=== PATIENT | male | born 1950 | race Caucasian/White ===

== ENCOUNTER 2023-11-01 10:58 | Outpatient (CLI) | payer MEDICARE ==
--- NOTE | 2023-11-01 11:57 | Sleep Patient Instructions ---
Sleep Center Visit Summary - Patient Visit Information Reason for Visit: Initial consult for evaluation of sleep disordered breathing and other sleep issues. - Patient Instructions Instructions Attached: Sleep Study Additional Instructions: You will be completing a sleep study, either an in-lab polysomnography (PSG) or home sleep study (HST). You will follow-up in the sleep care office after the sleep study is completed to hear the results and talk about therapy, if needed. You will be called by our office staff to schedule this appointment, but you may contact us with any questions. - Clinic Information Contact: [facility] [address] [place] [address] [email or web address] T: [phone]
--- NOTE | 2023-11-01 12:04 | SLEEP CARE CONSULTATION ---
Information from patient questionnaire entered by Jaylene Scott. I have reviewed and concur with the information entered by Jaylene Scott. This document represents the service I personally performed and the decisions made by me, Astrid Monet ARNP. History of Present Illness Service Date and Time: 11/01/2023 1058 Reason for Visit: New patient Accompanied by: Spouse (Viola) Chief Complaint: reports: Observed pauses in breathing Date of Onset: OBSERVED IN ICU LAST WEEK OF AUG 2023 Usual bedtime: 11-1130AM Time it takes to fall asleep: VARIES; 15-30 minutes average Snores at night: Yes (sometimes) Observed to quit breathing while asleep: No Sleeps alone due to snoring: No Number of times waking at night: 0-3 Reasons for waking at night: reports: Pain, Bathroom, Other (NOISE). denies: Choking, Snoring, Gasping for air Toss, Turn, or Twitch while sleeping: No Recalls having dreams: Yes Usually gets out of bed at: 7-8AM Feels refreshed in the morning: Yes (somewhat refreshed) Morning headache: No Sleepy or fatigued during the day: Yes Ever fallen asleep while driving: No Takes day naps: Yes (almost every day, some unintentional ) Dreams during day naps: Yes Prior sleep studies: No Additional HPI information: I had the pleasure of seeing DAVID BRYANT today regarding the possibility of him having a sleep disorder. His current complaints are observed pauses in breathing and snoring. He states when he was in ICU the last week of August he was told that he had pauses in breathing. He was in the ICU for congestive heart failure among other things. He states he wakes up feeling somewhat refreshed most mornings. He did go through. After his hospitalization where he was very fatigued during the day and waking up feeling rested. He states when he came out he stopped smoking and he has been smoking since he was 17 years old. His states he snores occasionally sometimes it is loud sometimes is not as bad. He does have a younger brother who has sleep apnea and narcolepsy who is on a CPAP machine. - Parasomnia Symptoms Ever been unable to move upon waking from sleep: No Walks in sleep: No Talks in sleep: No Ever acted out dreams in sleep: No Ever felt weak in the knees when startled or emotional: No Bothered by creepy, crawly, restless sensations in legs: No Problems with memory or concentration: No Subjective Initial Emmett Sleepiness Scale score: 7 (10/31/23) Past Medical History Past Medical History: reports: Hypertension, Congestive Heart Failure, Coronary Heart Disease, Anxiety Social History The patient's occupation is a RE. Patient is and lives in [place]. Have you smoked in the past 12 months: Yes Cigarettes per day (20/pack): 15 Years of smokin Quit date: 08/2023 Smoking Pack Years: 39.9 Alcohol use: Yes Alcohol amount and frequency: 2XYR Caffeine use: Yes Caffeine amount and frequency: 1 CUP 1X DAY Family History Family history of sleep disordered breathing: Yes Family Hx Sleep Apnea: Mother: Snoring, Father: Snoring, Sibling: Snoring, Sleep apnea - Treated Allergies and Home Medications Known drug allergies: No Drug allergies reviewed: Yes Home medication list reviewed: Yes Allergy and home medication list: Home Medications Medication Instructions Recorded Confirmed Last Taken Type Amiodarone [Pacerone] See Rx Instructions .ROUTE .COMPLEX 10/31/23 10/31/23 Unknown History Apixaban [Eliquis] See Rx Instructions .ROUTE .COMPLEX 10/31/23 10/31/23 Unknown History Cholecalciferol (Vitamin D3) See Rx Instructions .ROUTE .COMPLEX 10/31/23 10/31/23 Unknown History [Vitamin D3] Furosemide [Lasix] See Rx Instructions .ROUTE .COMPLEX 10/31/23 10/31/23 Unknown History Metoprolol Succinate [Toprol Xl] See Rx Instructions .ROUTE .COMPLEX 10/31/23 10/31/23 Unknown History Mv-Min/Folic/K1/Lycopen/Lutein See Rx Instructions .ROUTE .COMPLEX 10/31/23 10/31/23 Unknown History [Centrum Men 50 Plus Minis Tab] Sacubitril/Valsartan [Entresto 49 See Rx Instructions .ROUTE .COMPLEX 10/31/23 10/31/23 Unknown History mg-51 mg Tablet] Spironolactone [Aldactone] See Rx Instructions .ROUTE .COMPLEX 10/31/23 10/31/23 Unknown History Ubidecarenone [Co Q-10] See Rx Instructions .ROUTE .COMPLEX 10/31/23 10/31/23 Unknown History oxyCODONE [Roxicodone] See Rx Instructions .ROUTE .COMPLEX 10/31/23 10/31/23 Unknown History Review of Systems Weight gain over past 5 years: 5 Cardiovascular: reports: high blood pressure, irregular heart rate or pulse, leg or foot swelling Respiratory: reports: shortness of breath Gastrointestinal: denies: heartburn Neurological: denies: headaches Psychiatric: reports: anxiety Ear/Nose/Throat: denies: tonsillectomy Musculoskeletal: reports: joint pain, neck pain, back pain Immunologic: reports: rash, allergies to food or environment (bee stings) Physical Exam Vital signs obtained and entered by: ASTRID PINZON-Edelmira Blood Pressure: 150/90 Cuff size: long (right arm) Heart Rate: 57 O2 Saturation: 97 Height: 5 ft 11 in Weight: 213 lb 9.6 oz Body Mass Index: 29.7 BMI Classification: Overweight Neck circumference: 16.25 (inches) Mouth and throat: normal Soft palate: normal Hard palate: normal Uvula: normal Uvula visualization: 100% Mallampati Class I Tongue: enlarged in size with teeth chase on lateral edges Tonsils: small Neck: normal w/o lymphadenopathy or thyromegaly Heart: irregular rhythm Lungs: clear bilaterally Impression and Plan 1. Suspected Obstructive Sleep Apnea-Hypopnea Syndrome, as suggested by a history of irregular snoring, observed cessation of breath while asleep and some unrefreshed sleep. He has a history of congestive heart failure, coronary heart disease, high blood pressure and anxiety. Narrow oropharynx and obesity are common predisposing factors for obstructive sleep apnea-hypopnea syndrome. I recommend proceeding to polysomnography to confirm the diagnosis and to assess severity. If the patient has significant sleep disordered breathing, a manual CPAP titration study will also be performed to find the optimal treatment pressure. I informed the patient of what the sleep studies involve and after some discussion, obtained agreement to proceed. The pathophysiology of obstructive sleep apnea-hypopnea syndrome was discussed with the patient and health risks of cardiovascular and cerebrovascular disease if not treated. Risks of drowsy driving discussed in detail and patient advised to avoid long distance driving and to car clerk pullman at the first sign of drowsiness. Patient agreed to plan. * Schedule polysomnography * Avoid long distance driving or driving when feeling sleepy. * Avoid alcohol, sedative and muscle relaxant around bedtime. * Attempt to lose weight. * Review instructions provided by trained office staff on how to prepare for the sleep study. * Return for follow-up after sleep study completed. Counseling Topics: Weight loss health impact Plan: PSG Visit Type: In Office Time Spent with Patient (minutes): 36 Provider Statement: I spent 100% of the Face to Face Visit with the patient with greater than 50% spent counseling the patient and coordination of care.
[2023-11-01 12:11] VITALS: BP 150/90; O2SAT 97
== END 2023-11-01 10:59 | disposition home or self-care (01) ==
LOC: SC 10:58
PROVIDERS: ATTEND Nurse Practitioner Family
DX: G47.8 Other sleep disorders (principal); R06.83 Snoring; R06.81 Apnea, not elsewhere classified; I11.0 Hypertensive heart disease with heart failure; I50.9 Heart failure, unspecified; F41.9 Anxiety disorder, unspecified; Z87.891 Personal history of nicotine dependence
CPT/HCPCS: 99203; G0463; 99212

== ENCOUNTER 2023-11-15 20:29 | Outpatient (CLI) | payer MEDICARE | END 2023-11-15 20:30 | disposition home or self-care (01) | LOC: SC 20:29 | PROVIDERS: ATTEND Nurse Practitioner Family | DX: G47.33 Obstructive sleep apnea (adult) (pediatric) (principal); G47.61 Periodic limb movement disorder; I48.91 Unspecified atrial fibrillation; E66.3 Overweight; Z68.29 Body mass index [BMI] 29.0-29.9, adult | CPT/HCPCS: 95810 ==

== ENCOUNTER 2023-11-23 09:05 | Outpatient (CLI) | payer MEDICARE ==
--- NOTE | 2023-11-23 09:40 | Sleep Patient Instructions ---
Sleep Center Visit Summary - Patient Visit Information Reason for Visit: Sleep study follow-up - Patient Instructions Additional Instructions: You are to start Positional therapy to control your sleep apnea. You may obtain positional belts or other commercial devices online. You may also use pillows to position yourself on your side or a T shirt with balls sewn into the back to help keep you on your side to sleep. We would like to follow up with you in a month to check effectiveness of therapy. Please call office to schedule a follow up appointment in the sleep care office in 1-2 months. - Clinic Information Contact: [facility] [address] [place] [address] [email or web address] T: [phone]
--- NOTE | 2023-11-23 09:49 | SLEEP CARE CONSULTATION ---
Information from patient questionnaire entered by Jaylene Scott. I have reviewed and concur with the information entered by Jaylene Scott. This document represents the service I personally performed and the decisions made by , Astrid Monet ARNP. History of Present Illness Service Date and Time: 11/23/2023904 Accompanied by: Spouse (Viola) Initial [place] Sleepiness Scale score: 7 (10/31/23) Current [place] Sleepiness Scale score: 5 (11/23/23) Additional HPI information: DAVID BRYANT returns for follow up with spouse for results of the recently performed polysomnography. The sleep study showed mild obstructive sleep apnea with an average AHI of 10.6 and sara oxygen saturation of 85%. He had moderate PLMs contributing to sleep fragmentation and cardiac monitoring noted atrial fibrillation. I explained the pathophysiology behind obstructive sleep apnea. We then spent quite a bit of time discussing different treatment options. For mild obstructive sleep apnea, surgery and oral appliance are alternatives to nasal CPAP therapy but in moderate or severe cases, nasal CPAP is the most effective and reliable treatment. I strongly advised patient to try the CPAP because of his cardiac history. Because apnea is primarily in supine position, then positional management therapy could be effective. Methods discussed such as positioning with pillows, using a T-shirt with tennis balls in the back or commercial products that have a pillow format on back to prevent supine sleep. I reviewed the impact of weight changes on sleep apnea and strongly recommended losing weight. After some disc ussion, the patient opted to go with positional therapy for now until after he talks to his operations research scientist. Patient counseled not drink alcohol less than 4 hours before bedtime as it can increase snoring and apnea. Patient was cautioned about risks of drowsy driving until sleepiness symptoms resolve. Patient denies drowsy driving. Sleep Study - Results Type of Sleep Study: Polysomnography (COMPLETED 11/15/23) Prior sleep studies: No Polysomnography/Home Sleep Study results: IMPRESSION: The quality of the study is good. The patient had minimally reduced sleep efficiency. The sleep architecture abnormal for sleep fragmentation and lack of slow wave sleep (N3). Respiratory monitoring showed mild obstructive sleep apnea-hypopnea (AHI = 10.6) associated with frequent arousals, oxyhemoglobin desaturation and mild hypoxia (sara oxygen saturation of 85%). The respiratory events occurred almost exclusively during supine sleep (supine AHI = 25.7; non-supine = 3.01). Snore was light in intensity. There was moderate periodic leg movement of sleep contributing to the sleep fragmentation. Cardiac rhythm was atrial fibrillation. No abnormal behavior (parasomnia) observed during the night. Allergies and Home Medications Known drug allergies: No Drug allergies reviewed: Yes Home medication list reviewed: Yes (Jardiance) Allergy and home medication list: Allergies No Known Drug Allergies Allergy (Verified 11/21/23 10:07) Review of Systems Review of systems same as previous: Yes (NO CHANGE) Physical Exam Vital signs obtained and entered by: JAYLENE Hickey MA Blood Pressure: 142/90 (RIGHT ARM) Cuff size: regular Heart Rate: 79 O2 Saturation: 99 Height: 5 ft 11 in Weight: 212 lb Body Mass Index: 29.5 BMI Classification: Overweight Impression and Plan 1. Obstructive Sleep Apnea-Hypopnea Syndrome, mild, with lowest oxygen satura tion of 85%. Obviously this is the cause of the patients symptoms of unrefreshed sleep, and excessive daytime sleepiness. Positive pressure therapy could benefit hypertension, cardiac disease (CHF, CHD), atrial fibrillation and anxiety. I did strongly advised him starting CPAP therapy due to his cardiac issues but patient is reluctant to have to wear a mask at night. He also wants to talk to his operations research scientist who he sees in a couple months. Since patients apnea is primarily in supine position, patient advised to try positional therapy and he agreed with plan. He is also advised to lose weight as this will reduce snoring and apnea. Follow up is scheduled for one month to check effectiveness and if further evaluation indicated such a repeat study in supine position only to see if additional treatment indicated. 2. Hypoxemia, mild, with a sara oxygen saturation of 85% and 12.6 minutes spent under 90%. The baseline oxygen saturation was normal with an average oxygen saturation of 94%. 3. Atrial fibrillation. Cardiac monitoring showed atrial fibrillation during night of sleep study. I recommended that she follow-up with primary care doctor or cardiology for further workup and treatment as needed. 4. Periodic limb movement, moderate, that did contribute to fragmentation of patients sleep. Periodic limb movement of sleep (PLMS) is characterized by episodes of repetitive limb movements that occur during sleep and usually involve the lower limbs. The etiology is unknown. Sleep hygiene methods can also improve sleep as well as lifestyle changes such as regular exercise. Patient was advised that no treatment is needed at this time. If symptoms increase, then further evaluation is indicated. 5. Overweight, unspecified. Currently patients BMI is 29.5. Obesity increases the risk of apnea, CPAP pressure requirements and overall health risks especially cardiovascular and diabetes. Thus patient is advised to lose weight. * Positional therapy. * Attempt to lose weight. * Avoid alcohol consumption near bedtime. * Avoid supine sleep * The patient is again cautioned about driving until sleepiness completely resolves. * Return in 1-2 months. I will assess response to therapy at that time. Counseling Topics: Weight loss health impact Follow up with Sleep Care in: 1-2 months Plan: Positional therapy Visit Type: In Office Time Spent with Patient (minutes): 25 Provider Statement: I spent 100% of the Face to Face Visit with the patient with greater than 50% spent counseling the patient and coordination of care.
[2023-11-23 09:52] VITALS: BP 142/90; O2SAT 99
== END 2023-11-23 09:06 | disposition home or self-care (01) ==
LOC: SC 09:05
PROVIDERS: ATTEND Nurse Practitioner Family
DX: G47.33 Obstructive sleep apnea (adult) (pediatric) (principal); R09.02 Hypoxemia; I48.91 Unspecified atrial fibrillation; G47.61 Periodic limb movement disorder; E66.3 Overweight; Z68.29 Body mass index [BMI] 29.0-29.9, adult
CPT/HCPCS: 99213; G0463; 99212